=== PATIENT | male | born 1970 | race Caucasian/White ===

== ENCOUNTER 2017-04-24 18:37 | Emergency (ER) | payer MEDICAID ==
[~2017-04-24] VITALS: Ht 177.8 cm; Wt 100.0 kg
[2017-04-24 18:44] VITALS: BP 123/82
== END 2017-04-24 23:05 | disposition left against medical advice (07) ==
LOC: ER 18:37
DX: Z53.21 Procedure and treatment not carried out due to patient leaving prior to being seen by health care provider (principal)